=== PATIENT | female | born 1990 | race Caucasian/White ===

== ENCOUNTER 2019-05-23 21:42 | Emergency (ER) | payer SELFPAY ==
[2019-05-23 21:47] VITALS: BP 137/79; PULSE 103; RESP 19; TEMP 36.9; O2SAT 100
--- NOTE | 2019-05-23 22:21 | ED.DENTAL ---
HPI - Dental/Oral General Chief complaint: Dental/Oral Stated complaint: tooth abcess Time Seen by Provider: 05/23/19 22:11 Source: patient and RN notes reviewed Mode of arrival: ambulatory Limitations: no limitations History of Present Illness HPI Narrative: A 28 y/o female presents to the ED with worsening lt upper tooth pain for awhile . She states that she has decaying teeth and that she is scheduled to see a dentist on , but thinks that she might need some abx. She reports that she has taken Ibuprofen for the pain but denies it alleviating the pain. She also denies any fevers, chills, N/V/D, or ABD pain. MD Complaint: tooth pain Onset (ago): unknown ( awhile ) Duration: worsening Relieving factors: nothing Context: history of dental caries Treatment prior to arrival: other (Ibuprofen) Related Data Allergies Allergy/AdvReac Type Severity Reaction Status Date / Time ferrous sulfate Allergy Unknown Swelling Verified 12/01/18 13:37 Review of Systems Review of Systems: Narrative: CONSTITUTIONAL: Denies fevers or chills. ENT: Reports lt upper tooth pain. GASTROINTESTINAL: Denies abdominal pain, nausea, vomiting, or diarrhea. PMFSH Past Medical History Medical History Anemia Anxiety Depression History of ectopic Surgical History Surgical History History of cholecystectomy Social History Social History (Updated 05/23/19 @ 22:53 by Tj Zaragoza) Smoking packs per day: 0.5 Smoking cigarettes per day: 10.0 Smoking status: Current every day smoker Second hand tobacco smoke exposure: Yes Gender identity (if verbalized by the patient): Female Exam Narrative: Exam Narrative: GENERAL: Well-appearing, well-nourished, and in no acute distress. HEAD: Normocephalic, atraumatic. EYES: PERRLA and EOMI. ENT: Nares clear, no rhinorrhea or epistaxis. Mucous membranes moist. Dental caries, no trismus, uvula midline. NECK: Supple. CHEST: Clear to auscultation. No respiratory distress. HEART: Regular rate and rhythm. No murmur heard. Normal peripheral pulses. ABDOMEN: Soft, nontender, nondistended, normal active bowel sounds. EXTREMITIES: Normal range of motion. No edema. SKIN: Warm, dry, no rash. NEURO: No focal deficits. Alert and oriented X3. Course Course Emergency Course: Patient's pain is consistent with dental caries. At the time of assessment there are no signs of systemic illness, no focal signs of space-occupying abscess or lesions, no signs of [place] angina or other concerning retropharyngeal infection. The patient is controlling her secretions well without signs of airway compromise. Patient is thought reasonable for outpatient follow-up with dental evaluation. Patient given oral antibiotics and medication for analgesia. Vital Signs Vital signs: Vital Signs Temperature 36.9 C 05/23/19 21:47 Pulse Rate 103 H 05/23/19 21:47 Respiratory Rate 19 05/23/19 21:47 Blood Pressure 137/79 05/23/19 21:47 Pulse Oximetry 100 05/23/19 21:47 Temperature 36.6 C 05/23/19 22:45 Pulse Rate 92 05/23/19 22:45 Respiratory Rate 16 05/23/19 22:45 Blood Pressure 134/75 05/23/19 22:45 Pulse Oximetry 99 05/23/19 22:45 Discharge Plan Discharge Clinical Impression: Dental caries, Toothache Patient Disposition: Home, Self-Care Condition: Stable Instructions: Antibiotic Form, Toothache (ED) Additional Instructions: Follow up with your primary care physician and dentist by phone today to set up for reevaluation in the next 7 days. Go to ER for worsening pain, nausea/vomiting, fever/chills, worsening bleeding, chest pain, shortness of breath, blood in stools or urine, etc. or any other concerns. Take any prescribed medications as directed. Stay well-hydrated If you do not have a drug allergy to tylenol or motrin and can tolerate it then take tylenol or motrin as needed for discomfort/
[2019-05-23 22:45] VITALS: BP 134/75; PULSE 92; RESP 16; TEMP 36.6; O2SAT 99
== END 2019-05-23 22:48 | disposition home or self-care (01) ==
PROVIDERS: Emergency Provider Emergency Medicine
DX: K02.9 Dental caries, unspecified (principal); F17.210 Nicotine dependence, cigarettes, uncomplicated
CPT/HCPCS: 99283